=== PATIENT | male | born 1965 | race Caucasian/White ===

== ENCOUNTER 2017-02-04 06:32 | Day surgery (SDC) | payer BC ==
[~2017-02-04 06:32] MED LIST: Dextrose 5%-0.45% NaCl 1,000 ML IV SCH; Midazolam 1 MG/ML 2 ML SDV ONE; Sodium Chloride 0.9% 10 ML Syringe FLUSH PRN; fentaNYL 100 MCG/2 ML SDV ONE
[2017-02-04] MEDS ORDERED: fentaNYL 100 MCG/2 ML SDV IV ONE ×3 (07:47→11:26)
[2017-02-04] MEDS ORDERED: Midazolam 1 MG/ML 2 ML SDV IV ONE ×7 (07:49→11:26)
--- NOTE | 2017-02-04 09:08 | OR ---
DATE: 02/04/2017 PROCEDURE: Total colonoscopy. INSTRUMENT USED: [id number]-H180AL Olympus video colonoscope. PREMEDICATIONS: Fentanyl 100 mcg intravenous, Versed 4 mg intravenous. Nasal O2 cannula. The procedure was done under pulse oximetry, BP recording, and environmental monitoring technician. INDICATION: Screening colonoscopic examination is done for detection of any polypoid lesions and removal, endoscopic hemostasis therapy if needed. DESCRIPTION OF PROCEDURE: Initial rectal exam was unremarkable. Rigid anoscopy was normal. The colonoscope was passed with ease. Few scattered diverticula were noted along with deformity in the distal colon, requiring some manipulation to go around the angle of the junction to visualize proximal areas. The scope was passed up to the ileocecal area, photographs were taken of the normal- appearing cecum, identified by appendiceal orifice and double-bulged ileocecal folds. No bleeding was noted from any of the visualized areas at the commencement of the examination. No stricture. No vascular ectasia. No large isolated ulcerations seen. No evidence of diffuse inflammatory bowel disease in the form of friability, contact bleeding, or ulcerations. No polyp or tumor mass identified. Probing the proximal sides of folds and flexures, using adequate distention and clearing up the stool material, withdrawal of the scope was made, cecum to rectum time over 6 minutes. No bleeding was noted from any of the visualized areas at the completion of examination. IMPRESSION: Diverticulosis. The patient tolerated the procedure well. [facility] /[id number]
[2017-02-04 09:52] VITALS: BP 114/76
== END 2017-02-04 10:10 | disposition home or self-care (01) ==
LOC: DL.ENDO 06:32
PROVIDERS: ATTEND Internal Medicine Gastroenterology
DX: Z12.11 Encounter for screening for malignant neoplasm of colon (principal); K57.30 Diverticulosis of large intestine without perforation or abscess without bleeding; E66.9 Obesity, unspecified; Z90.49 Acquired absence of other specified parts of digestive tract; Z98.890 Other specified postprocedural states; Z79.82 Long term (current) use of aspirin; Z79.899 Other long term (current) drug therapy
CPT/HCPCS: 45378; J2250; J3010; J7042

== ENCOUNTER 2022-02-09 15:14 | Emergency (ER) | payer BC ==
[2022-02-09] MEDS ORDERED: predniSONE 20 MG Tab PO ONE (15:15)
[2022-02-09] MEDS ORDERED: diphenhydrAMINE 50 MG/ML SDV IVPUSH ONE (15:20)
[2022-02-09 15:45] VITALS: BP 130/97; PULSE 78
[2022-02-09] MEDS ORDERED: methylPREDNISolone Sodium Succinate 125 MG/2 ML SDV IVPUSH ONE (16:00)
[2022-02-09] MEDS ORDERED: predniSONE 20 MG Tab ONE (17:11)
== END 2022-02-09 17:10 | disposition home or self-care (01) ==
LOC: DL.ED 15:14
DX: T63.461A Toxic effect of venom of wasps, accidental (unintentional), initial encounter (principal); E66.9 Obesity, unspecified; Z79.82 Long term (current) use of aspirin; Z79.899 Other long term (current) drug therapy; Z68.36 Body mass index [BMI] 36.0-36.9, adult
CPT/HCPCS: 96374; 96375; 99282; 99282-25; J1200; J2930; J7512

== ENCOUNTER 2024-02-14 18:23 | Emergency (ER) | payer BC ==
[2024-02-14] MEDS: Ketorolac 30 MG/ML SDV IVPUSH ONE (20:30)
[2024-02-14] MEDS: ceFAZolin 2 GM Vial IVPUSH ONE (20:31)
[2024-02-14] MEDS: Diphtheria,Pertussis(Acell),Tetanus Vaccine 0.5 ML Syringe IM ONE (20:39)
[2024-02-14] MEDS: Ondansetron 4 MG/2 ML SDV IVPUSH ONE (20:41)
[2024-02-14] MEDS: Lidocaine 2% with EPINEPHrine 1:200,000 20 ML SDV INJECT ONE (20:48)
[2024-02-14] MEDS: Bacitracin Oint 1 GM U/D Packet ONE (21:22)
[2024-02-14] MEDS: Bacitracin Oint 1 GM U/D Packet TOP ONE (21:22)
[2024-02-14] MEDS: Take Home: Cephalexin 500 MG Cap, 6 Cap Pack PO ONE (22:14)
== END 2024-02-14 22:15 | disposition home or self-care (01) ==
LOC: DL.ED 18:23
DX: S63.251A Unspecified dislocation of left index finger, initial encounter (principal); I11.0 Hypertensive heart disease with heart failure; I50.9 Heart failure, unspecified; E66.9 Obesity, unspecified; Z90.49 Acquired absence of other specified parts of digestive tract; Z23 Encounter for immunization; Z79.899 Other long term (current) drug therapy; Z79.82 Long term (current) use of aspirin; W19.XXXA Unspecified fall, initial encounter
CPT/HCPCS: 12001; 26770; 73130-LT; 73140-F4; 90471; 90715; 96374; 96375; 99283; 99284-25; A9270-GY; J0690; J1885; J2405; J3490